=== PATIENT | male | born 1980 | race Caucasian/White ===

== ENCOUNTER 2020-04-25 12:20 | Emergency (ER) | payer MEDICARE ==
[2020-04-25 12:23] VITALS: BP 133/89; TEMP 97.9
[2020-04-25] MEDS ORDERED: NOVOLOG 100U100 U/M1 SQ (13:09)
[2020-04-25] MEDS ORDERED: LEVEMIR100 U/ML SQ (13:11)
[2020-04-25] MEDS ORDERED: ABILIFMAIN300 IM (13:12)
[2020-04-25 14:15] VITALS: PULSE 115
--- NOTE | 2020-04-25 14:24 | NUR ---
Product Marketing Consultant was consulted to the ED as patient reports he needs assistance paying for his medications. Per ED note, patient reports he is "passing through". SW met with patient who advised he lives alone in [place] and that his mother, Ragini (ph#[phone]) also lives in [place]. Patient requests SW not contact Ragini. Patient states his primary care physician is Dr. Go in [place] and that he normally fills prescriptions at [facility] in [place]. Patient states he has Medicare and receives roughly $1100-$1300 a month in disability income. Patient then states people are controlling his money. Patient advised SW could call his sister, Jesusita (ph#[phone]). SW contacted Jesusita who advised patient has a long history of mental illness including bipolar and schizophrenia. Jesusita reports that their father two years ago and that their mom and other brother, Tin live in [place]. Jesusita reports that Tin lives within a mile of patient. Jesusita denies that patient has a payee or anyone that controls his money. Jesusita states patient gets medications through [facility] and that she would be willing to help him pay for the medications if needed. SW contacted [facility] who advised patient has refills available for Novolog and Levemir which would cost about $9 each. [facility] advised patient's Abilify injection, which he gets once a month, does not have a refill available. The pharmacist at [facility] advised that patient's mother, Ragini always pays for his medications. Last time the Abilify injection was refilled it only cost about $8 with insurance. KENDRA was advised that Dr. Marsh, Psychiatrist is the prescribing physician for the Abilify. KENDRA contacted Dr. Marsh's office who advised they will send an updated prescription to [facility]. KENRDA contacted [facility] and was advised they are open until 1800 if patient needed to fill Levemir or Novolog. If the prescription for the Abilify injection is received tonight, it can be ordered and arrive tomorrow. KENDRA met with patient to provide these updates. Patient states he can afford the cost of the Novolog and Levemir today and will call his sister for some reason that changes. 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 Patient states he was in [place] for the day but doesn't want to share why. SW provided update about Abilify injection and he states that people are trying to control his life. Patient askes at this point to be left alone. SW contacted patient's sister, Jesusita to provide update. Jesusita advised again that she will help patient pay for his medications if needed. KENDRA advised that as soon as prescription for Abilify injection is received, [facility] will order it for patient. KENDRA collaborated with ER Physician about the above information. Per ER Physician, patient does have some of his insulin on his person and could possibly even wait until tomorrow to go to the pharmacy. Patient to be discharged and will warp picker medications at [facility] in [place] before 1800.
== END 2020-04-25 14:15 | disposition home or self-care (01) ==
LOC: COL.ER 12:20
DX: E10.8 Type 1 diabetes mellitus with unspecified complications (principal); Z79.899 Other long term (current) drug therapy; F31.9 Bipolar disorder, unspecified